=== PATIENT | male | born 1975 | race African-American/Black ===

== ENCOUNTER 2016-10-14 09:59 | Emergency (ER) | payer OTHER ==
[~2016-10-14 09:59] MED LIST: FLEXERIL10 M1 PO; VIBRAMYCIN100 M1 PO; VOLTAREN75 MG PO
== END 2016-10-14 10:57 | disposition home or self-care (01) ==
LOC: CFTX 09:59 → CED 09:59 → CFTX 10:36
DX: K91.840 Postprocedural hemorrhage of a digestive system organ or structure following a digestive system procedure (principal); F17.200 Nicotine dependence, unspecified, uncomplicated
CPT/HCPCS: 96372; 99283; J1885